=== PATIENT | female | born 1965 | race Caucasian/White ===

== ENCOUNTER 2020-03-01 13:14 | Outpatient (REF) | payer OTHER, SELFPAY | END 2020-03-01 13:15 | disposition home or self-care (01) | LOC: HO.LAB 13:14 | PROVIDERS: PCP Internal Medicine; Visit Provider Internal Medicine | DX: Z20.822 Contact with and (suspected) exposure to COVID-19 (principal) | CPT/HCPCS: 36415; C9803; U0003 ==

== ENCOUNTER 2020-03-07 09:03 | Outpatient (REF) | payer OTHER, SELFPAY | END 2020-03-07 09:04 | disposition home or self-care (01) | LOC: HO.LAB 09:03 | PROVIDERS: PCP Internal Medicine; Visit Provider Internal Medicine | DX: Z20.822 Contact with and (suspected) exposure to COVID-19 (principal) | CPT/HCPCS: 36415; C9803; U0003 ==

== ENCOUNTER 2020-08-19 07:04 | Day surgery (SDC) | payer OTHER, SELFPAY ==
--- NOTE | 2020-08-17 14:17 | HO.ANESPROP2 ---
Documented by User: Lesvia Narvaez 08/17/20 14:18 HPI - Anesthesia Eval Consult details Narrative: 55yo F for Colonoscopy [facility] Past Medical History Medical History Anxiety Arthritis HTN (hypertension) Insomnia MVP (mitral valve prolapse) On beta aries at home Surgical History Surgical History History of endometrial ablation History of varicose vein ligation and stripping Hx of colonoscopy Hx of repair of right rotator cuff S/P excision of Belle's neuroma [place] teeth extracted Social History Social History Patient Tobacco Use Status: Never used Tobacco Use of substances other than those prescribed or required for medical reasons: No Have you been hit, kicked, punched, or otherwise hurt by someone within the past year? If so, by whom?: No Are you DNR?: No Advance Directives: No Advance Directives Information Provided: No Recently lost weight without trying: No Meds Allergies Allergy/AdvReac Type Severity Reaction Status Date / Time apple [APPLE] Allergy Intermediate ITCHING,LIPS Verified 08/19/20 07:16 TINGLE azithromycin [AZITHROMYCIN] Allergy Intermediate RASH Verified 08/19/20 07:16 hydrochlorothiazide Allergy Unknown Verified 08/19/20 07:16 Home Medications Medication Instructions Recorded Confirmed Last Taken Type ibuprofen [Advil] 400 mg PO Q8H PRN 08/12/20 08/19/20 08/12/20 History lorazepam 1 tab PO TID PRN 08/12/20 08/12/20 Unknown History metoprolol tartrate 1 tab PO BID 08/12/20 08/19/20 08/19/20 History Exam Exam Date and Time: August 17, 2020 141 Assessment and Plan Assessment Anesthesia Assessment: Chart Reviewed Documented by User: Lesa Husain 08/19/20 07:41 PMFSH Past Medical History Medical History Anxiety Arthritis HTN (hypertension) Insomnia MVP (mitral valve prolapse) On beta aries at home Surgical History Surgical History History of endometrial ablation History of varicose vein ligation and stripping Hx of colonoscopy Hx of repair of right rotator cuff S/P excision of Belle's neuroma [place] teeth extracted Social History Social History Patient Tobacco Use Status: Never used Tobacco Use of substances other than those prescribed or required for medical reasons: No Have you been hit, kicked, punched, or otherwise hurt by someone within the past year? If so, by whom?: No Are you DNR?: No Advance Directives: No Advance Directives Information Provided: No Recently lost weight without trying: No Meds Allergies Allergy/AdvReac Type Severity Reaction Status Date / Time apple [APPLE] Allergy Intermediate ITCHING,LIPS Verified 08/19/20 07:16 TINGLE azithromycin [AZITHROMYCIN] Allergy Intermediate RASH Verified 08/19/20 07:16 hydrochlorothiazide Allergy Unknown Verified 08/19/20 07:16 Home Medications Medication Instructions Recorded Confirmed Last Taken Type ibuprofen [Advil] 400 mg PO Q8H PRN 08/12/20 08/19/20 08/12/20 History lorazepam 1 tab PO TID PRN 08/12/20 08/12/20 Unknown History metoprolol tartrate 1 tab PO BID 08/12/20 08/19/20 08/19/20 History Exam Airway Mallampati Class: II TM Dist: >3cm Neck ROM: Full Assessment and Plan Assessment Anesthesia Assessment: Anesthesia Plan Discussed and Chart Reviewed Final Anesthetic Review NPO: Yes ASA Class: II Final Preanesthetic Review: No Changes in Pt Med Stat, Meds/Allgs Chart Reviewed, Consent Obtained/Reviewed and Anes Risks/Benef Reviewed Patient Risk: Low Procedure Risk: Low Assessment/Block/Sedation in SS: Assess/Block/Sedation-SS Anesthetic Plan Anesthetic Plan: MAC: Disposition: Standard PACU
[2020-08-19 07:17] VITALS: BMI 24.5
[2020-08-19 07:35] VITALS: BP 134/92; PULSE 72; RESP 18; TEMP 36.4; O2SAT 97
[2020-08-19] MEDS: Lactated Ringers 1,000 ML 100 ML IVCONT (07:50)
--- NOTE | 2020-08-19 08:25 | MHC.SHP ---
Pre-Procedural Eval Section A Date of Service: 08/19/20 The patient is an INPATIENT: No Changes since office visit: No Cold of Flu in the past 2 weeks, No New Medical Problems, No Changes in Medication and No Patient answered all questions The History & Physical has been completed within 30 days and I have reviewed it.: Yes Section B Chief Complaint: screening Allergies: Allergies Allergy/AdvReac Type Severity Reaction Status Date / Time apple [APPLE] Allergy Intermediate ITCHING,LIPS Verified 08/19/20 07:16 TINGLE azithromycin [AZITHROMYCIN] Allergy Intermediate RASH Verified 08/19/20 07:16 hydrochlorothiazide Allergy Unknown Verified 08/19/20 07:16 Plan I have reviewed the history and physical and performed a pertinent physical examination on my patient. No changes have occurred unless specified.
--- NOTE | 2020-08-19 08:54 | PM.OP ---
Brief Operative Note Date of Service: 08/19/20 Pre-op diagnosis: screening Post-op diagnosis: same (colon polyps) Procedure: colonoscopy Surgeon: Dale Reis Anesthesia: MAC Was an Plug Drill Operator used for this Procedure?: No Estimated blood loss (mL): 0 Pathology: other (polyps x3) Condition: stable Disposition: PACU
[2020-08-19 09:00] VITALS: BP 97/65; PULSE 64; RESP 12; TEMP 36.3; O2SAT 95
[2020-08-19 09:15] VITALS: BP 119/77; PULSE 60; RESP 18; O2SAT 98
--- NOTE | 2020-08-19 09:35 | OP_ITS ---
SURGEON: Dale Reis MD INDICATIONS: Colon cancer screening and family history of colon cancer. PREOPERATIVE DIAGNOSIS: POSTOPERATIVE DIAGNOSIS: PROCEDURE PERFORMED: Colonoscopy to the terminal ileum with snare polypectomy. ESTIMATED BLOOD LOSS: COMPLICATIONS: ANESTHESIA: ASSISTANTS: SPECIMENS: MEDICATIONS: Monitored anesthesia care. DESCRIPTION OF PROCEDURE: History and physical performed. The risks and benefits of the procedure were explained to the patient. Informed consent was obtained. The patient was placed in the left lateral decubitus position. A digital rectal exam was performed and was found to be normal. The Olympus pediatric video colonoscope was introduced into the rectum and advanced to the cecum without difficulty. The cecum was identified by transillumination, palpation, and identification of ileocecal valve. Examination was performed and the scope was removed. She tolerated the procedure well and was taken to recovery area in stable condition. FINDINGS: The terminal ileum was examined and appeared normal. The visualized colonic mucosa was normal. The quality of the prep was good. Three polyps were identified. All measured less than 10 mm and were removed with a snare. These were located in the cecum, at 80 cm, and at 20 cm. No other polyps were identified. Retroflexed examination showed small internal hemorrhoids. IMPRESSION: Colon polyps. RECOMMENDATION: Follow up the biopsy results. MD YANELI Coffman/MODESTA / [id number] MTDD
== END 2020-08-19 09:41 ==
LOC: HO.SSS 07:25
PROVIDERS: PCP Internal Medicine; Visit Provider Internal Medicine Gastroenterology
PROC: 0DJD8ZZ Inspection of Lower Intestinal Tract, Via Natural or Artificial Opening Endoscopic (ICD-10-PCS; CPT 45378; principal; 2020-08-19 08:20)
DX: Z12.11 Encounter for screening for malignant neoplasm of colon (principal); Z80.0 Family history of malignant neoplasm of digestive organs; D12.0 Benign neoplasm of cecum; D12.4 Benign neoplasm of descending colon; K63.5 Polyp of colon; K64.8 Other hemorrhoids; I10 Essential (primary) hypertension; F41.9 Anxiety disorder, unspecified; Z79.899 Other long term (current) drug therapy
CPT/HCPCS: 45385; 88305

== ENCOUNTER 2022-07-11 12:25 | Day surgery (SDC) | payer OTHER, SELFPAY ==
[2022-07-11 12:54] VITALS: BMI 25.7
[2022-07-11 13:01] VITALS: BP 141/79; PULSE 60; RESP 16; TEMP 36.3; O2SAT 98
[2022-07-11 13:03] VITALS: BMI 25.7
[2022-07-11] MEDS: Lactated Ringers 1,000 ML 100 ML IVCONT (13:15)
--- NOTE | 2022-07-11 13:24 | HO.ANESPROP2 ---
[facility] Past Medical History Medical History Anxiety Arthritis HTN (hypertension) Insomnia MVP (mitral valve prolapse) On beta aries at home Surgical History Surgical History History of endometrial ablation History of varicose vein ligation and stripping Hx of colonoscopy Hx of repair of right rotator cuff S/P excision of Belle's neuroma [place] teeth extracted History of Problems with Anesthesia: No Social History Social History Patient Tobacco Use Status: Never used Tobacco Use of substances other than those prescribed or required for medical reasons: No Are you DNR?: No Advance Directives: No Advance Directives Information Provided: Yes Meds Allergies Allergy/AdvReac Type Severity Reaction Status Date / Time apple [APPLE] Allergy Intermediate ITCHING,LIPS Verified 08/19/20 07:16 TINGLE azithromycin [AZITHROMYCIN] Allergy Intermediate RASH Verified 08/19/20 07:16 hydrochlorothiazide Allergy Unknown Verified 08/19/20 07:16 Active Medications: Current Medications Lactated Ringer's (Lr) 1,000 mls @ 100 mls/hr IVCONT .Q10H HOA Last Admin: 07/11/22 13:15 Dose: 100 mls/hr Home Medications Medication Instructions Recorded Confirmed Last Taken Type ibuprofen 200 mg tablet (Advil) 400 mg PO Q8H PRN Pain 08/12/20 08/12/20 History lorazepam 0.5 mg tablet 1 tab PO TID PRN anxiety 08/12/20 08/12/20 Unknown History metoprolol tartrate 25 mg tablet 1 tab PO BID 08/12/20 08/19/20 08/19/20 History metoprolol tartrate 50 mg tablet 50 mg PO BID 07/10/22 07/10/22 Unknown History naproxen 500 mg tablet 500 mg PO BID 07/10/22 07/10/22 Unknown History rosuvastatin 5 mg tablet 5 mg PO DAILY 07/10/22 07/10/22 Unknown History losartan 25 mg tablet 25 mg PO DAILY 07/11/22 07/11/22 07/11/22 07:30 History Exam Exam Date and Time: July 11, 2022 1324 Height,Weight and Vital Signs: Height 5 ft 9 in Weight 78.925 kg Last Vital Signs Temp 97.4 F 07/11/22 13:01 Pulse 60 07/11/22 13:01 Resp 16 07/11/22 13:01 BP 141/79 H 07/11/22 13:01 Pulse Ox 98 07/11/22 13:01 O2 Del Method Room Air 07/11/22 13:01 Airway Mallampati Class: II TM Dist: >3cm Neck ROM: Full Heart: RRR Lungs: CTA Assessment and Plan Assessment Anesthesia Assessment: Anesthesia Plan Discussed Final Anesthetic Review History of Problems with Anesthesia: No NPO: Yes ASA Class: II Final Preanesthetic Review: Meds/Allgs Chart Reviewed, Consent Obtained/Reviewed and Anes Risks/Benef Reviewed Patient Risk: Low Procedure Risk: Low Anesthetic Plan Anesthetic Plan: MAC: Disposition: Standard PACU
--- NOTE | 2022-07-11 13:45 | MHC.SHP ---
Pre-Procedural Eval Section A Date of Service: 07/11/22 The patient is an INPATIENT: No Changes since office visit: No Cold of Flu in the past 2 weeks, No New Medical Problems, No Changes in Medication and No Patient answered all questions The History & Physical has been completed within 30 days and I have reviewed it.: Yes Section B Chief Complaint: rectal bleeding Allergies: Allergies Allergy/AdvReac Type Severity Reaction Status Date / Time apple [APPLE] Allergy Intermediate ITCHING,LIPS Verified 08/19/20 07:16 TINGLE azithromycin [AZITHROMYCIN] Allergy Intermediate RASH Verified 08/19/20 07:16 hydrochlorothiazide Allergy Unknown Verified 08/19/20 07:16 Plan I have reviewed the history and physical and performed a pertinent physical examination on my patient. No changes have occurred unless specified. Time Spent With Patient Time: Total time managing care of this patient today ____ minutes.
--- NOTE | 2022-07-11 14:17 | PM.OP ---
Brief Operative Note Date of Service: 07/11/22 Pre-op diagnosis: rectal bleeding Post-op diagnosis: same Surgeon: Dale Reis Anesthesia: MAC Was an Physician Practice Market Manager used for this Procedure?: No Estimated blood loss (mL): 2 Pathology: other Condition: stable Disposition: PACU
[2022-07-11 14:21] VITALS: BP 104/59; PULSE 70; RESP 16; TEMP 36.4; O2SAT 96
--- NOTE | 2022-07-11 14:23 | HO.POSTANES ---
Post Anesthesia Evaluation Post Anesthesia Evaluation Date of Service: 07/11/22 Vital Signs: Vital Signs Temp Pulse Resp BP Pulse Ox O2 Del Method 07/11/22 13:01 97.4 F 60 16 141/79 H 98 Room Air Anesthesia: Monitored Mental Status: Awake Pain Control: Satisfactory Nausea/Vomiting: None Hydration: Adequate Anesthesia-Related Issues: No Anes. Related Issues
[2022-07-11 14:36] VITALS: BP 109/74; PULSE 56; RESP 14; TEMP 36.4; O2SAT 96
[2022-07-11 14:47] VITALS: BP 135/90; PULSE 58; RESP 14; O2SAT 98
--- NOTE | 2022-07-11 21:32 | OP_ITS ---
DATE OF SERVICE: 07/11/2022 SURGEON: Dale Reis MD INDICATIONS: Rectal bleeding. PREOPERATIVE DIAGNOSIS: POSTOPERATIVE DIAGNOSIS: PROCEDURE PERFORMED: Colonoscopy to the terminal ileum with biopsy. ESTIMATED BLOOD LOSS: COMPLICATIONS: ANESTHESIA: Monitored anesthesia care. ASSISTANTS: SPECIMENS: DESCRIPTION OF PROCEDURE: A history and physical were performed. The risks and benefits of the procedure were explained to the patient. Informed consent was obtained. The patient was placed in the left lateral decubitus position. A digital rectal exam was performed and was found to be normal. The Olympus pediatric video colonoscope was introduced into the rectum and advanced to the cecum without difficulty. The cecum was identified by transillumination, palpation, and identification of ileocecal valve. Examination was performed, and the scope was removed. She tolerated the procedure well and was returned to recovery in stable condition. FINDINGS: The terminal ileum was examined and appeared normal. The visualized colonic mucosa was normal. The quality of prep was good. At 10 cm was a less than 5 mm sessile polyp that was removed using a biopsy forceps. No other polyps were identified. Retroflexed examination showed moderate-sized internal hemorrhoids. IMPRESSION: Colon polyp. RECOMMENDATION: Follow up the biopsy results. MD YANELI Coffman/MODESTA / [id number]
== END 2022-07-11 14:51 | disposition home or self-care (01) ==
PROVIDERS: PCP Internal Medicine; Visit Provider Internal Medicine Gastroenterology
PROC: 0DJD8ZZ Inspection of Lower Intestinal Tract, Via Natural or Artificial Opening Endoscopic (ICD-10-PCS; CPT 45378; principal; 2022-07-11 13:40)
DX: K62.5 Hemorrhage of anus and rectum (principal); Z86.010 Personal history of colon polyps; Z80.0 Family history of malignant neoplasm of digestive organs; D12.8 Benign neoplasm of rectum; K64.8 Other hemorrhoids; I10 Essential (primary) hypertension; G47.00 Insomnia, unspecified; M19.90 Unspecified osteoarthritis, unspecified site; Z79.899 Other long term (current) drug therapy; Z79.1 Long term (current) use of non-steroidal anti-inflammatories (NSAID); Z88.1 Allergy status to other antibiotic agents; Z88.8 Allergy status to other drugs, medicaments and biological substances
CPT/HCPCS: 45380; 88305

== ENCOUNTER 2022-07-30 08:55 | Outpatient (REF) | payer OTHER, SELFPAY ==
--- NOTE | ~2022-07-30 | XR_ITS ---
EXAMINATION: XR ANKLE, LEFT CLINICAL INFORMATION: Left ankle pain and swelling. COMPARISON: None available. TECHNIQUE: AP, lateral, and mortise views of the left ankle. FINDINGS: No acute fracture or dislocation. The ankle mortise is maintained. No joint space narrowing or marginal osteophytes. No concerning lytic or blastic osseous lesion. Tiny dorsal calcaneal enthesophyte. Accessory ossicles adjacent to the navicula. Mild circumferential soft tissue swelling. No significant joint effusion. XR/XR ankle LT min 3V IMPRESSION: Mild circumferential soft tissue swelling without acute osseous abnormality.
== END 2022-07-30 08:56 | disposition home or self-care (01) ==
LOC: HO.HMGCX 08:55
PROVIDERS: PCP Internal Medicine; Visit Provider Internal Medicine
DX: M25.572 Pain in left ankle and joints of left foot (principal)
CPT/HCPCS: 73610

== ENCOUNTER 2023-10-09 10:37 | Outpatient (AMB) | payer OTHER, SELFPAY ==
[2023-10-09 10:51] VITALS: BP 134/72; PULSE 53; BMI 24.0
--- NOTE | 2023-10-09 10:51 | A.OFFVIS_ITS ---
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 She states that she was told have mitral valve prolapse many years ago. She had an echocardiogram in 2006 and that had reported mild posterior mitral leaflet prolapse and mild mitral regurgitation. Otherwise, she feels occasional fluttering which could indicate ectopy but no sustained arrhythmias. No other symptoms like chest pains or shortness of breath. She is fairly active with no limitations. COUNT INCLUDES THE [facility] Medical History (Updated 10/09/23 @ 11:21 by Nikhil Alcaraz MD) On beta aries at home MVP (mitral valve prolapse) Anxiety Arthritis HTN (hypertension) Insomnia Surgical History Hx of repair of right rotator cuff History of endometrial ablation S/P excision of Belle's neuroma [place] teeth extracted History of varicose vein ligation and stripping Hx of colonoscopy Family History Mother HTN (hypertension) Depression Dementia Father HTN (hypertension) Afib Dyslipidemia Sister History of colon cancer History of breast cancer Brother HTN (hypertension) Dyslipidemia Social History (Updated 10/09/23 @ 10:59 by Rufina Bo CMA) Alcohol intake: current Comment: social Patient Tobacco Use Status: Never used Tobacco Review of Systems Const Denies chills, Denies daytime sleepiness, Denies fatigue, Denies fever(s), Denies poor appetite, Denies snoring, Denies stops breathing during sleep, Denies weakness, Denies weight gain and Denies weight loss Eyes Denies loss of vision ENT Denies dizziness and Denies hearing loss Card Denies chest pain, Denies irregular heart rhythm, Denies claudication, Denies leg edema, Denies lightheadedness, Denies palpitations, Denies dyspnea on exertion and Denies orthopnea Resp Denies cough, Denies excessive phlegm production, Denies dyspnea on exertion, Denies snoring and Denies wheezing GI Denies abdominal pain, Denies hematochezia, Denies change in bowel habits, Denies nausea and Denies vomiting Denies urinary frequency and Denies dysuria Musc Denies arthralgias, Denies muscle weakness, Denies numbness and Denies other Skin/Breast Denies nail changes and Denies rash Neuro Denies Abnormal speech present, Denies dizziness, Denies loss of vision, Denies memory loss, Denies numbness and Denies weakness Psych Denies depression and Denies memory loss Endo Denies fatigue and Denies palpitations Nixon/Lymph Denies easy bruising Aller/Immun Denies wheezing Physical Exam Vital Signs: Last Vital Signs Pulse 53 10/09/23 10:51 BP 134/72 10/09/23 10:51 BMI result Body Mass Index 24.0 Const General: comfortable and no acute distress Orientation/consciousness: patient oriented x3 HEENT Other: Unremarkable Head: Yes normal to inspection Neck Neck: Yes normal visual inspection Chest Chest palpation & inspection: normal inspection of the chest Resp Auscultation: clear to auscultation bilaterally Cardio Palpation: normal PMI Heart sounds: S1 normal heart sound present, S2 normal heart sound present, no gallops, no murmurs and no rubs GI Palpation (GI): Soft to palpation Back/Spine/Pelvis Other: unremarkable Skin General skin exam: no rashes or lesions noted Neuro General: patient oriented x3 Speech: No Abnormal speech present Extrem General: Yes normal to inspection Psych Mental Status: mental status grossly normal Office Procedures EKG Details: EKG shows underlying sinus bradycardia at 53/Min; no significant ST-T changes; [place] [id number], Complete Assessment & Plan Assessment & Plan (1) MVP (mitral valve prolapse): Code(s): I34.1 - Nonrheumatic mitral (valve) prolapse Category: Medical (2) Non-rheumatic mitral regurgitation: Code(s): I34.0 - Nonrheumatic mitral (valve) insufficiency Category: Medical (3) HTN (hypertension): Code(s): I10 - Essential (primary) hypertension Category: Medical Plan [id number] 60-65%; mild anterior mitral leaflet thickening; mild prolapse of posterior leaflet and mild mitral regurgitation. Clinically, no overt murmur. Occasional palpitations that could just indicate some ectopy. We will plan on getting repeat echocardiogram as it has been almost 2 decades. Otherwise, blood pressure seems stable on the current regimen and no changes made. Orders: Orders CA echo transthoracic complete Today I34.0 - Nonrheumatic mitral (valve) insufficiency, I34.1 - Nonrheumatic mitral (valve) prolapse Coding Level of Care Code New Pt Level 3 (08458) Diagnoses MVP (mitral valve prolapse) I34.1 Non-rheumatic mitral regurgitation I34.0 HTN (hypertension) I10 CPT Codes EKG - CPT: 41577-[id number], Complete ([id number])
== END 2023-10-09 11:14 | disposition home or self-care (01) ==
PROVIDERS: PCP Internal Medicine; Visit Provider Internal Medicine
DX: I34.1 Nonrheumatic mitral (valve) prolapse (principal); I34.0 Nonrheumatic mitral (valve) insufficiency; I10 Essential (primary) hypertension
CPT/HCPCS: 93010; 99203

== ENCOUNTER → 2023-10-09 10:37 | Outpatient (BNVA) | payer OTHER, SELFPAY | PROVIDERS: PCP Internal Medicine; Visit Provider Internal Medicine | DX: I34.1 Nonrheumatic mitral (valve) prolapse (principal); I34.0 Nonrheumatic mitral (valve) insufficiency; I10 Essential (primary) hypertension | CPT/HCPCS: 93005 ==

== ENCOUNTER → 2023-11-06 07:31 | Outpatient (REF) | payer OTHER, SELFPAY ==
--- NOTE | 2023-11-06 07:33 | CA_ITS ---
Transthoracic Echocardiogram Patient (Last, First, Middle): Trent Curtis M Gender: Female Date of : 1965 Age: 58 Procedure Date: 11/06/2023 Procedure Type: Transthoracic Echocardiogram Location: OP Height: 175.26 cm Weight: 73.48 kg BSA: 1.89 m2 Heart Rate: 45 bpm BP: 128 / 80 mmHg Commercial Credit Officer: SB Referring MD: Nikhil Alcaraz MD Symptoms: I34.1 - Nonrheumatic mitral (valve) prolapse Study Quality: Adequate ECG Rhythm: Bradycardia Conclusions: - The left ventricular systolic function is normal. The visually estimated ejection fraction is between 55-60%. - There is mild posterior mitral leaflet prolapse. There is trace mitral valve regurgitation. Findings Left Ventricle Normal left ventricular cavity size. There is normal left ventricular wall thickness. The left ventricular systolic function is normal. The visually estimated ejection fraction is between 55-60%. There is no evidence of regional wall motion abnormalities. Diastolic function is normal for age. LV peak GLS -20.6%. Right Ventricle Normal right ventricular cavity size and systolic function. Atria The left atrium is likely dilated. The right atrium is normal in size. Aortic Valve There is a normal trileaflet aortic valve. There is no aortic valve stenosis. There is no aortic valve regurgitation. Mitral Valve There is mild posterior mitral leaflet prolapse. There is trace mitral valve regurgitation. There is no mitral valve stenosis. Pulmonic Valve There is trace to mild pulmonic valve regurgitation. Tricuspid Valve Normal tricuspid valve structure. There is mild tricuspid valve regurgitation. There is no evidence of pulmonary hypertension. Great Vessels The asc aorta is normal in size. Venous The inferior vena cava is normal in size and collapses greater than 50% with inspiration. Pericardium/Pleural There is no evidence of pericardial effusion. Prior Study Comparison No significant change compared to prior study dated: 01/10/2007. Measurements 2D Linear Measurements IVSd: 0.91 0.6-0.9/0.6-1.0 cm LVIDd: 5.44 3.9-5.3/4.2-5.9 cm LVIDd Index: 2.88 2.4-3.2/2.2-3.1 cm/m2 LVIDs: 3.47 2.0-3.6 cm LVPWd: 0.80 0.7-1.1 cm LA Diam: 3.20 2.7-3.8/3.0-4.0 cm LAIDs Index: 1.69 1.5-2.3 cm/m2 LV Mass: 212.56 67-162/88-224 g LV Mass Index: 112.46 43-95/49-115 g/m2 LVOT Diam: 2.20 3.0+(-)1.3 cm 2D Systolic Function EF 4C: 55.40 >55% EF 2C: 53.30 >55% EF BiP: 54.20 >55% Mitral Valve MV Pk E: 0.66 MV PK A: 0.30 MV Decel Time: 232.00 E/A: 2.20 E'Lateral: 7.94 E'Medial: 6.42 E/E' Med: 10.30 E/E' Lat: 8.30 PHT: 68.00 MVA PHT: 3.24 Decel [place]: 2.84 Aortic Valve AoV Pk Ton: 1.15 AoV Pk Grad: 5.00 CHEMA: 2.73 LVOT LVOT Pk Ton: 0.86 LVOT Mn Ton: 0.62 LVOT VTI: 0.22 LVOT Pk Grad: 3.00 LVOT Mn Grad: 2.00 LVOT Diam: 2.20 LVOT Area: 3.80 Diastolic Function MV Pk E: 0.66 MV Pk A: 0.30 E/A: 2.20 E'Medial: 6.42 E/E' Med: 10.30 E' Laterial: 7.94 E/E' Lat: 8.30 Right Ventricle TAPSE (mm): 21.70 TVS' Ton: 10.40 Tricuspid Valve TR Pk Ton: 2.34 TR Pk Grad: 22.00 RA Press: 3.00 RVSP: 25.00 Great Vessels Aorta Sinus of Valsalva: 3.60 2.0-3.5 cm Ao Asc: 3.40 2.1-3.4 cm Pulmonary Valve PV Pk Ton: 0.81 Peak PV Grad: 3.00 KS Pk Ton: 1.91 Updated in Other Vendor System with Status of Final Nikhil Alcaraz MD electronically signed on 11/08/2023 2:07:05 PM with status of Final
== END ==
LOC: HO.CARD 07:31
PROVIDERS: PCP Internal Medicine; Visit Provider Internal Medicine
DX: I34.1 Nonrheumatic mitral (valve) prolapse (principal); I34.0 Nonrheumatic mitral (valve) insufficiency
CPT/HCPCS: 93306; 93356

== ENCOUNTER → 2023-11-06 07:33 | Outpatient (BNV) | payer OTHER, SELFPAY | PROVIDERS: PCP Internal Medicine; Visit Provider Internal Medicine | DX: I34.1 Nonrheumatic mitral (valve) prolapse (principal); I37.1 Nonrheumatic pulmonary valve insufficiency; I36.1 Nonrheumatic tricuspid (valve) insufficiency | CPT/HCPCS: 93306; 93356 ==